=== PATIENT | male | born 1965 | race Caucasian/White ===

== ENCOUNTER 2017-11-26 12:26 | Outpatient (CLI) | payer OTHER ==
--- NOTE | 2017-11-26 13:30 | RAD ---
LEFT HP 2 VIEWS: Date: 11/26/17 HISTORY: Hip pain since Thursday. FINDINGS: Hip joint appears fairly well preserved without significant joint space narrowing and very minimal a rthritic change. Calcification is seen adjacent to the greater trochanter. This could potentially ind icate a calcific tendinitis related to the gluteus minimus and medius tendon insertions. Clinical cor relation as to whether the patient's pain specifically relates to this region. IMPRESSION: Area of calcification or ossification adjacent to the greater trochanter, raising the possibility of calcific tendinitis at this level. Clinical correlation recommended. POS: LILY
== END 2017-11-26 12:27 | disposition home or self-care (01) ==
LOC: SCSRAD 12:26
PROVIDERS: ATTEND Family Medicine
DX: M25.552 Pain in left hip (principal)

== ENCOUNTER 2019-12-27 16:16 | Emergency (ER) | payer OTHER ==
[2019-12-28 10:58] LABS: SARS-CoV-2 MS2 Positive; SARS-CoV-2 N Gene Negative; SARS-CoV-2 S Gene Negative; SARS-CoV-2 by NAA Not Detected (NotDetected); SARS-CoV-2 orf1ab Negative
== END 2019-12-27 17:45 | disposition home or self-care (01) ==
LOC: ERS 16:16
DX: Z20.828 Contact with and (suspected) exposure to other viral communicable diseases (principal)
CPT/HCPCS: 87635; 99283; U0003

== ENCOUNTER 2022-12-03 09:16 | Outpatient (CLI) | payer OTHER ==
[2022-12-03] MEDS ORDERED: Iopamidol 370 76% 100 ML VIAL ONE (09:50)
== END 2022-12-03 09:17 | disposition home or self-care (01) ==
LOC: CT 09:16
PROVIDERS: ATTEND Surgery
DX: I73.9 Peripheral vascular disease, unspecified (principal); I70.209 Unspecified atherosclerosis of native arteries of extremities, unspecified extremity
CPT/HCPCS: 75635; Q9967